=== PATIENT | female | born 1970 | race Caucasian/White ===

== ENCOUNTER 2018-07-02 09:12 | Day surgery (SDC) | payer BC ==
[~2018-07-02 09:12] MED LIST: Lactated Ringers 1,000 ML IV SCH; Sodium Chloride 0.9% 10 ML Syringe FLUSH PRN; Sodium Chloride 0.9% 2.5 ML Syringe FLUSH PRN
--- NOTE | 2018-07-02 09:52 | PCM.PREANE ---
Preanesthetic Assessment - Anesthesia/Transfusion/Family Hx Anesthesia History: Prior Anesthesia Without Reaction Family History of Anesthesia Reaction: No Transfusion History: No Prior Transfusion(s) Intubation History: Unknown - Review of Systems General: No Symptoms Pulmonary: No Symptoms Cardiovascular: No Symptoms Gastrointestinal: Difficulty Swallowing (resolved on prilosec) Neurological: No Symptoms Other: Reports: None - Physical Assessment O2 Sat by Pulse Oximetry: 98 Respiratory Rate: 16 Vital Signs: Last Vital Signs Temp 36.3 C 07/02/18 09:45 Pulse 89 07/02/18 09:45 Resp 16 07/02/18 09:45 BP 123/73 07/02/18 09:45 Pulse Ox 98 07/02/18 09:45 Height: 1.65 m Weight: 85.275 kg ASA Class: 2 Mental Status: Alert & Oriented x3 Airway Class: Mallampati = 2 Dentition: Reports: Normal Dentition Thyro-Mental Finger Breadths: 3 Mouth Opening Finger Breadths: 3 ROM/Head Extension: Full Lungs: Clear to Auscultation, Normal Respiratory Effort Cardiovascular: Regular Rate, Regular Rhythm - Allergies Allergies/Adverse Reactions: Allergies Allergy/AdvReac Type Severity Reaction Status Date / Time power Allergy Abdominal Verified 06/29/18 12:59 Pain corn Allergy Abdominal Verified 06/29/18 12:59 Pain egg yolk Allergy Abdominal Verified 06/29/18 12:59 Pain milk Allergy Abdominal Verified 06/29/18 12:59 Pain pollen extracts Allergy Sneezing Verified 06/29/18 12:59 watermelon Allergy Abdominal Verified 06/29/18 12:59 Pain wheat Allergy Abdominal Verified 06/29/18 12:59 Pain dust mites Allergy Sneezing Uncoded 06/29/18 12:59 sugar Allergy Abdominal Uncoded 06/29/18 12:59 Pain - Blood Blood Available: No - Anesthesia Plan Pre-Op Medication Ordered: None - Acknowledgements Anesthesia Type Planned: MAC Pt an Appropriate Candidate for the Planned Anesthesia: Yes Alternatives and Risks of Anesthesia Discussed w Pt/Guardian: Yes Pt/Guardian Understands and Agrees with Anesthesia Plan: Yes PreAnesthesia Questionnaire HEENT History: Reports: Other (See Below) Other HEENT History: wears glasses/contacts Respiratory History: Reports: Asthma Other Respiratory History: exercise induced- has not used inhaler for 15 years Gastrointestinal History: Reports: GERD Genitourinary History: Reports: None [employer] History: Reports: Neurological History: Reports: Concussion Endocrine/Metabolic History: Reports: Hypothyroidism, Obesity/BMI 30+ Dermatologic History: Reports: Other (See Below) Other Dermatologic History: has "sores- probably allergy related" - Past Surgical History Head Surgeries/Procedures: Reports: None GI Surgical History: Reports: Other (See Below) Other GI Surgeries/Procedures: Abdominoplasty Female Surgical History: Reports: Breast Implant, Section - SUBSTANCE USE Smoking Status *Q: Never Smoker Recreational Drug Use History: No - HOME MEDS Home Medications: Home Meds Cholecalciferol (Vitamin D3) [Vitamin D3] 5,000 unit PO DAILY 06/29/18 [History] Iron 65 mg PO DAILY 06/29/18 [History] Montelukast Sodium 10 mg PO DAILY 06/29/18 [History] Thyroid,Pork [Thayer Thyroid] 90 mg PO DAILY 06/29/18 [History] - CURRENT (IN HOUSE) MEDS Current Meds: Current Medications Lactated Ringer's (Ringers, Lactated) 1,000 mls @ 125 mls/hr IV ASDIRECTED LACI Last Admin: 07/02/18 09:48 Dose: 125 mls/hr Sodium Chloride (Saline Flush) 10 ml FLUSH ASDIRECTED PRN PRN Reason: Keep Vein Open Sodium Chloride (Saline Flush) 2.5 ml FLUSH ASDIRECTED PRN PRN Reason: Keep Vein Open Sodium Chloride (Saline Flush) 10 ml FLUSH ASDIRECTED PRN PRN Reason: Keep Vein Open Sodium Chloride (Saline Flush) 2.5 ml FLUSH ASDIRECTED PRN PRN Reason: Keep Vein Open
[2018-07-02] MEDS ORDERED: Midazolam 1 MG/ML 2 ML SDV ONE (12:26)
[2018-07-02] MEDS ORDERED: Lidocaine 2% 5 ML SDV ONE (12:27)
[2018-07-02] MEDS ORDERED: fentaNYL 100 MCG/2 ML SDV ONE (12:27)
[2018-07-02] MEDS ORDERED: Propofol 200 MG/20 ML SDV ONE (12:28)
--- NOTE | 2018-07-02 13:35 | PCM.OPNOTE ---
- General Post-Op/Procedure Note Date of Surgery/Procedure: 07/02/18 Operative Procedure(s): Diagnostic EGD and screening colonoscopy Findings: Normal appearing EGD and normal colonoscopy Pre Op Diagnosis: Dysphagia, family history of colon polyps/cancer Post-Op Diagnosis: Normal EGD and colonoscopy Anesthesia Technique: KALINA Primary Surgeon: Carline Way Condition: Good
--- NOTE | 2018-07-02 18:23 | OR ---
SURGEON: DEIDRE SERRANO MD DATE OF PROCEDURE: 07/02/2018 PREOPERATIVE DIAGNOSES: Dysphagia, family history of colon cancer and colon polyps. POSTOPERATIVE DIAGNOSES: Normal esophagogastroduodenoscopy and colonoscopy. PROCEDURES PERFORMED: Diagnostic EGD and screening colonoscopy. ANESTHESIA: MAC. INSTRUMENT USED: Olympus endoscope and colonoscope. EXTENT OF EXAM: To the second portion of duodenum, to the cecum. PREPARATION: Good. LIMITATIONS: None. INDICATION FOR EXAMINATION: The patient is a 48-year-old female who presents with dysphagia. She was recently seen by a GI physician and placed on a PPI. Her symptoms have improved, but it was recommended she have an EGD to rule out eosinophilic esophagitis. The patient also has a family history of colon cancer with her father having history of colon polyps. She is due for a screening colonoscopy. I explained the procedure, expected perioperative course, and risks including bleeding, infection, or damage to surrounding structures including perforation. The patient verbalized understanding and wishes to proceed. PROCEDURE IN DETAIL: The patient was brought to the endoscopy suite and placed in the left lateral decubitus position. A time-out was completed verifying the patient's name, age, date of , allergies, and procedure to be performed. Monitored anesthesia care was induced and continuous oxygen was provided via nasal cannula throughout the procedure. A bite block was placed in the patient's mouth. After adequate sedation was achieved, a well lubricated endoscope was placed in the patient's mouth and advanced under direct visualization to the second portion of duodenum. This appeared normal and a photograph was taken. The scope was then straightened out and fully withdrawn while examining the color, texture, anatomy, and integrity mucosa of the upper GI tract. The duodenum appeared normal. The scope was brought into the stomach and a photograph was taken of the GE junction as well as pylorus. Both appeared anatomically normal. The gastric mucosa was grossly unremarkable. Biopsies were taken of the gastric antrum, body, and fundus and sent for histologic review and H. pylori testing. The scope was then brought into the distal esophagus and a photograph was taken of the Z-line, which appeared normal. Biopsies were taken of the distal esophageal mucosa and sent for histologic review. The proximal esophagus was free of pathology. The scope was removed and this part of the procedure was terminated. I then turned my attention to the colonoscopic portion of the exam. A digital rectal exam was performed. This exam was within normal limits. A well lubricated colonoscope was inserted in the rectum and advanced under direct visualization to the level of the cecum. The cecum was identified by both visual and anatomic landmarks. A photograph was taken of the cecal cap as well as with the scope retroflexed within the cecum. The scope was then straightened out and fully withdrawn while examining the color, texture, anatomy, and integrity of the mucosa from the cecum to the anal canal. The findings were consistent with normal colonic mucosa. The scope was then brought into the rectum and retroflexed to allow visualization of the anal canal opening. This appeared normal and a photograph was taken. The scope was then straightened out and fully withdrawn. The cecum to anus time was 9 minutes. The patient tolerated procedure well and was taken to PACU in stable condition. ENDOSCOPIC DIAGNOSES: Normal-appearing esophagogastroduodenoscopy and colonoscopy. RECOMMENDATIONS: Follow up in clinic in 2 weeks to discuss the Pathology results from the EGD. COREEN WEINER /[id number]
== END 2018-07-02 14:20 | disposition home or self-care (01) ==
LOC: MW.SDS 09:12
PROVIDERS: ATTEND Surgery
DX: Z12.11 Encounter for screening for malignant neoplasm of colon (principal); K20.9 Esophagitis, unspecified; J45.990 Exercise induced bronchospasm; K21.9 Gastro-esophageal reflux disease without esophagitis; E03.9 Hypothyroidism, unspecified; E66.9 Obesity, unspecified; Z68.31 Body mass index [BMI] 31.0-31.9, adult; Z79.899 Other long term (current) drug therapy; Z79.890 Hormone replacement therapy; Z80.0 Family history of malignant neoplasm of digestive organs; Z83.71 Family history of colonic polyps; Z88.8 Allergy status to other drugs, medicaments and biological substances; Z91.018 Allergy to other foods
CPT/HCPCS: 43239; 45378; 81025; J2001; J2250; J2704; J3010; J7120; 88305; 88312

== ENCOUNTER 2019-06-24 11:44 | Day surgery (SDC) | payer BC ==
[~2019-06-24 11:44] MED LIST changes: +Betamethasone Acetate/Betamethasone Sod Phosphate 30 MG/5 ML MDV EPIDUR ONE; +Iopamidol 200-M 10 ML vial ITHECAL ONE; -Lactated Ringers 1,000 ML IV SCH; +Lidocaine 2% 5 ML SDV INJECT ONE; +Ropivacaine 0.5% 5 MG/ML 30 ML SDV INJECT ONE; -Sodium Chloride 0.9% 10 ML Syringe FLUSH PRN; -Sodium Chloride 0.9% 2.5 ML Syringe FLUSH PRN
--- NOTE | 2019-06-24 19:57 | OR ---
SURGEON: Amelia Yepez D.O. DATE OF PROCEDURE: 06/24/2019 PRIMARY SURGEON: Amelia Yepez D.O. TUB CHUCKER: OR staff present: 1. Kaylan Mayo RT. 2. Gerardo Pratt RN. 3. Terry Andrade RN. WOUND CLASS: I. PREOPERATIVE DIAGNOSES: 1. Lumbar degenerative disk disease, L4-L5, L5-S1. 2. Lumbar radiculopathy. 3. Chronic low back pain. 4. Lumbar spondylosis. POSTOPERATIVE DIAGNOSES: 1. Lumbar degenerative disk disease, L4-L5, L5-S1. 2. Lumbar radiculopathy. 3. Chronic low back pain. 4. Lumbar spondylosis. PROCEDURE PERFORMED: 1. Right L4 transforaminal epidural steroid injection. 2. Left L4 transforaminal epidural steroid injection. 3. Fluoroscopic guidance for needle placement. 4. Local with oral Valium for sedation. SCREENING QUESTIONS: The patient answered "no" to all of the following questions: 1. Are you allergic to iodine, Betadine or latex? 2. Do you have a bleeding disorder? 3. Do you have any joint replacements, heart valve replacements, or a pacemaker? 4. Are you allergic to anti-inflammatories or blood thinners? 5. Do you have any current local or systemic infections? DESCRIPTION OF PROCEDURE: The patient had the procedure thoroughly explained including risks, benefits and alternatives. Consent was signed in my clinic indicating understanding and willingness to proceed. The patient presented to [facility] where the patient was escorted to the dressing room to disrobe and change into a hospital gown. Preoperative vital signs were taken and stable. The patient reported that Valium was taken prior to the procedure. The patient was brought to the procedure room and placed in the prone position on the table. A pillow was placed under the abdomen in order to flatten the lumbar lordosis. The back was prepped with ChloraPrep and sterilely draped. All personnel in the operating room were dressed in appropriate attire including surgical scrubs, head and shoe covers. This was to ensure sterility while in the treatment room. During the time fluoroscopy was in use, all personnel in the operating room wore lead camacho with thyroid collars. Sterile technique was used during the procedure. The fluoroscope was placed for the left L4 transforaminal epidural steroid injection. There was no sign of infection at the skin site for needle insertion. The skin was anesthetized with 2% lidocaine with a 27 gauge 1-1/2 inch needle. Then a 22 gauge 3-1/2 inch spinal needle, advanced to the L4. Under direct fluoroscopic guidance needle position was verified in three views; AP, oblique and lateral, with 0.2 cubic centimeters increments of Isovue-200 dye. No intravascular flow pattern was observed under live fluoroscopy. Then a mixture of local and 6 milligrams of Celestone was slowly injected after negative aspiration of heme, cerebrospinal fluid and no paresthesias were noted. The needle was cleared prior to removal from the skin.No adverse reactions were noted. The procedure was repeated for the right L4 transforaminal epidural steroid injection as above without complications. The patient was brought to the recovery room awake and in good condition by my staff. The patient was monitored and discharge instructions were given after a brief stay in the recovery area. Both oral and written discharge and follow up instructions were given. The patient will follow up in the clinic in 3-4 weeks post procedure to evaluate the efficacy. The patient verbalized understanding including understanding of those signs and symptoms that would require emergency care and knows how to contact the office if there are any problems or questions in the meantime. PREOPERATIVE PAIN: 5/10. POSTOPERATIVE PAIN: 0/10. FOLLOWUP: Follow up in the Pain Clinic in 1 month. AMANDA / HUSAM /[id number] VIRAL
== END 2019-06-24 13:33 ==
LOC: MW.SDS 11:44
PROVIDERS: ATTEND Anesthesiology
DX: G89.29 Other chronic pain (principal); M51.16 Intervertebral disc disorders with radiculopathy, lumbar region; M47.26 Other spondylosis with radiculopathy, lumbar region; M51.17 Intervertebral disc disorders with radiculopathy, lumbosacral region; M48.061 Spinal stenosis, lumbar region without neurogenic claudication; M47.817 Spondylosis without myelopathy or radiculopathy, lumbosacral region; M79.18 Myalgia, other site; J45.909 Unspecified asthma, uncomplicated; Z91.018 Allergy to other foods; Z91.012 Allergy to eggs; Z91.011 Allergy to milk products
CPT/HCPCS: 64483; J0702

== ENCOUNTER 2019-07-22 11:17 | Day surgery (SDC) | payer BC ==
[2019-07-22] MEDS ORDERED: Iopamidol 200-M 10 ML vial ITHECAL ONE (13:00)
[2019-07-22] MEDS ORDERED: Betamethasone Acetate/Betamethasone Sod Phosphate 30 MG/5 ML MDV EPIDUR ONE (13:00)
[2019-07-22] MEDS ORDERED: Ropivacaine 0.5% 5 MG/ML 30 ML SDV INJECT ONE (13:00)
[2019-07-22] MEDS ORDERED: Lidocaine 2% 5 ML SDV INJECT ONE (13:00)
--- NOTE | 2019-07-22 21:45 | OR ---
SURGEON: Amelia Yepez D.O. DATE OF PROCEDURE: 07/22/2019 PRIMARY SURGEON: Amelia Yepez D.O. BOX OFFICE ATTENDANT: OR staff present: 1. Terry Andrade RN. 2. Gerardo Pratt RN. 3. RT Bharti. WOUND CLASS: I. PREOPERATIVE DIAGNOSES: 1. Lumbar degenerative disk disease, L4-L5 and L5-S1. 2. Lumbar spondylosis. 3. Right lower extremity radiculopathy. POSTOPERATIVE DIAGNOSES: 1. Lumbar degenerative disk disease, L4-L5 and L5-S1. 2. Lumbar spondylosis. 3. Right lower extremity radiculopathy. PROCEDURE PERFORMED: 1. Right transforaminal epidural steroid injection at L4. 2. Right transforaminal epidural steroid injection at L5. 3. Fluoroscopic guidance for needle placement. 4. Local with oral Valium for sedation. SCREENING QUESTIONS: The patient answered "no" to all of the following questions: 1. Are you allergic to iodine, Betadine or latex? 2. Do you have a bleeding disorder? 3. Do you have any joint replacements, heart valve replacements, or a pacemaker? 4. Are you allergic to anti-inflammatories or blood thinners? 5. Do you have any current local or systemic infections? MEDICAL NECESSITY: This is a patient with a history of chronic low back pain and lower extremity radicular pain in the above dermatomal pattern that comes in for the above diagnostic and therapeutic procedure. Pertinent positives and negatives for this suspected disease process along with the diagnostic findings and testing are in the patient's history and physical exam. The most salient feature includes radicular pain in the above dermatomal pattern. The patient had failed attempts at conservative therapy including physical therapy, nonsteroidal anti- inflammatory drugs, and other medications. No contraindications to perform this procedure including medical, no bleeding disorders or infections, no psychological, no antisocial personality disorder or active addiction disorder. There are no work-related issues, and, in general, the patient does not have any history of multiple prior interventions, surgeries or nerve blocks which have failed to return the patient to function. The patient's other symptoms to be treated include numbness, paresthesia, dysesthesia or hypoesthesia referred into the left lower extremity or any weakness in the involved myotome. This procedure is being performed in accordance with national guidelines as written by the International [employer] (BRITTANI). DESCRIPTION OF PROCEDURE: The patient had the procedure thoroughly explained including risks, benefits and alternatives. Consent was signed in my clinic indicating understanding and willingness to proceed. The patient presented to [facility] [place] where the patient was escorted to the dressing room to disrobe and change into a hospital gown. Preoperative vital signs were taken and stable. The patient reported that Valium was taken prior to the procedure. The patient was brought to the procedure room and placed in the prone position on the table. A pillow was placed under the abdomen in order to flatten the lumbar lordosis. The back was prepped with ChloraPrep and sterilely draped. All personnel in the operating room were dressed in appropriate attire including surgical scrubs, head and shoe covers. This was to ensure sterility while in the treatment room. During the time fluoroscopy was in use, all personnel in the operating room wore lead camacho with thyroid collars. Sterile technique was used during the procedure. The fluoroscope was placed for the L4 and L5 transforaminal epidural steroid injection. There was no sign of infection at the skin site for needle insertion. The skin was anesthetized with 2% lidocaine with a 27 gauge 1-1/2 inch needle. Then a 22 gauge 3-1/2 inch spinal needle, advanced to the L4 and L5. Under direct fluoroscopic guidance needle position was verified in three views; AP, oblique and lateral, with 0.2 cubic centimeters increments of Isovue- 200 dye. No intravascular flow pattern was observed under live fluoroscopy. Then 12 milligrams of Celestone was slowly injected after negative aspiration of heme, cerebrospinal fluid and no paresthesias were noted. The needle was cleared prior to removal from the skin. No adverse reactions were noted. The patient was brought to the recovery room awake and in good condition by my staff. The patient was monitored and discharge instructions were given after a brief stay in the recovery area. Both oral and written discharge and follow up instructions were given. The patient will follow up in the clinic in 3-4 weeks post procedure to evaluate the efficacy. The patient verbalized understanding including understanding of those signs and symptoms that would require emergency care and knows how to contact the office if there are any problems or questions in the meantime. PREOPERATIVE PAIN: 8/10. POSTOPERATIVE PAIN: 10. FOLLOWUP: Follow up in the Pain Clinic in 1 month. HOGLCHR / MODL /[id number]
== END 2019-07-22 14:08 ==
LOC: MW.SDS 11:17
PROVIDERS: ATTEND Anesthesiology
DX: G89.29 Other chronic pain (principal); M51.16 Intervertebral disc disorders with radiculopathy, lumbar region; M51.17 Intervertebral disc disorders with radiculopathy, lumbosacral region; M47.26 Other spondylosis with radiculopathy, lumbar region; M47.27 Other spondylosis with radiculopathy, lumbosacral region; M48.061 Spinal stenosis, lumbar region without neurogenic claudication; E03.9 Hypothyroidism, unspecified; M79.18 Myalgia, other site; Z91.012 Allergy to eggs; Z91.018 Allergy to other foods; Z91.011 Allergy to milk products; Z91.048 Other nonmedicinal substance allergy status; Z79.899 Other long term (current) drug therapy
CPT/HCPCS: 62323; 64483; 64484; 81025

== ENCOUNTER 2019-12-30 10:49 | Day surgery (SDC) | payer BC ==
[2019-12-30] MEDS ORDERED: Iopamidol 200-M 10 ML vial ITHECAL ONE (12:00)
[2019-12-30] MEDS ORDERED: Lidocaine 2% 5 ML SDV INJECT ONE (12:00)
[2019-12-30] MEDS ORDERED: Betamethasone Acetate/Betamethasone Sod Phosphate 30 MG/5 ML MDV EPIDUR ONE (12:00)
[2019-12-30] MEDS ORDERED: Ropivacaine 0.5% 5 MG/ML 30 ML SDV INJECT ONE (12:00)
--- NOTE | 2019-12-30 18:02 | OR ---
SURGEON: Amelia Yepez D.O. DATE OF PROCEDURE: 12/30/2019 PRIMARY SURGEON: Amelia Yepez D.O. ASSISTANTS: OR Staff Present: 1. Denisse Bruner RN. 2. Terry Shane RN. 3. Terry Andrade RN. 4. Robin Holley, RT. WOUND CLASS: I. PREOPERATIVE DIAGNOSES: 1. Lumbar facet arthropathy-right L3-4 L4-5 and L5-S1. 2. Chronic low back pain. 3. Lumbar scoliosis. 4. Lumbar degenerative disk disease; L3-4, L4-5 and L5-S1. POSTOPERATIVE DIAGNOSES: 1. Lumbar facet arthropathy-right L3-4 L4-5 and L5-S1. 2. Chronic low back pain. 3. Lumbar scoliosis. 4. Lumbar degenerative disk disease; L3-4, L4-5 and L5-S1. PROCEDURES PERFORMED: 1. Right L3-4 facet joint injection. 2. Right L4-5 facet joint injection. 3. Right L5-S1 facet joint injection. 4. Fluoroscopic guidance for needle placement. 5. Local with oral Valium for sedation. SCREENING QUESTIONS: The patient answered "No" to all the following questions: 1. Are you allergic to iodine, Betadine or latex? 2. Do you have a bleeding disorder? 3. Are you on anti-inflammatories or blood thinners? 4. Do you have any current local or systemic infections? DESCRIPTION OF PROCEDURE: The patient had the procedure thoroughly explained including risks, benefits and alternatives. Consent was signed in my clinic indicating understanding and willingness to proceed. The patient presented to [facility] [place] and was escorted to the dressing room to disrobe and change into a hospital gown. Preoperative history and screening were performed by my nurse. Vital signs were taken and stable. The patient reported that Valium 10 milligrams was taken prior to the procedure. The patient was brought back to the procedure room and placed in the prone position on the procedure room table. A pillow was placed under the abdomen in order to flatten the lumbar lordosis. The back was prepped with ChloraPrep and sterilely draped. All personnel in the procedure room were dressed in appropriate attire including surgical scrubs, head and shoe covers. This was to ensure sterility while in the treatment room. During the time fluoroscopy was in use all personnel in the operating room wore lead camacho with thyroid collars. Sterile technique was used during the procedure. The fluoroscope was positioned to provide a right oblique view. Then the right L3-4 facet joint injection was begun by anesthetizing the skin and soft tissues with 2 cubic centimeters of 2% Preservative-Free Lidocaine with a 25-gauge 1.5 inch needle. There were no signs of infection at the site of needle skin insertions. Using fluoroscopic guidance a sterile 22-gauge 3.5 inch spinal needle was positioned at the junction of the "ear of the [place] dog". Precise needle placement was confirmed by fluoroscopy and 0.2 cubic centimeters increments of IsoVue-200 contrast dye which was injected through microbore tubing under live fluoroscopy and showed no intravascular flow pattern and adequate flow over the target L3-4 facet joint. Then 1.0 cubic centimeters of Celestone with local 0.5% Ropivacaine Preservative-Free was injected slowly without complications after negative aspiration. Then the fluoroscope was positioned to provide a right oblique view for the right L4-5 facet joint injection. This was begun by anesthetizing the skin and soft tissues. The fluoroscope was positioned and a sterile 22-gauge 3.5 inch needle was placed at the junction of the " ear of the [place] dog" . Precise needle placement was confirmed by fluoroscopy and with 0.2 cubic centimeter increments of IsoVue-200 contrast dye injected through microbore tubing under live fluoroscopy that showed no intravascular flow pattern and adequate flow over the target . After negative aspiration, 1.0 cubic centimeters of Celestone and local was injected without complications. The fluoroscope was then positioned to provide a right L5-S1 facet injection. This was begun by anesthetizing the skin and soft tissues over the right sacral sulcus. Then using fluoroscopic guidance, a sterile 22-gauge 3.5 inch spinal needle was positioned at the "ear of the [place] dog". Precise needle placement was confirmed by fluoroscopy in AP and oblique views, and with 0.2 cubic centimeter increments of IsoVue-200 contrast dye injected through microbore tubing under live fluoroscopy and showed no intravascular flow pattern and adequate flow over the target facet joint. After negative aspiration, 1.0 cubic centimeters of Celestone and local 0.5% Ropivacaine was injected. No complications were noted. The procedure was well tolerated and vital signs were stable during and after the procedure. The staff escorted the patient to the recovery area. The patient was given both oral and written discharge and followup instructions. The patient will follow up with a pain diary which will be evaluated over this evening doing things that would normally cause pain. We will evaluate the efficacy of the diagnostic lumbar medial branch blocks as the patient will follow up in the clinic the next day. The patient was given both oral and written discharge and followup instructions. The patient voiced understanding including understanding of those signs and symptoms that would require emergency care and knows how to contact the office if there are any questions or concerns in the meantime. PREOPERATIVE PAIN: 12/02 POSTOPERATIVE PAIN: 07/05 FOLLOWUP: In the Pain Clinic in one month. HOGLCHR / JUSTUSL /[id number] VIRAL
== END 2019-12-30 13:00 ==
LOC: MW.SDS 10:49
PROVIDERS: ATTEND Anesthesiology
DX: G89.29 Other chronic pain (principal); M51.16 Intervertebral disc disorders with radiculopathy, lumbar region; M79.18 Myalgia, other site; M48.061 Spinal stenosis, lumbar region without neurogenic claudication; M47.26 Other spondylosis with radiculopathy, lumbar region; E03.9 Hypothyroidism, unspecified; M41.9 Scoliosis, unspecified; Z79.899 Other long term (current) drug therapy
CPT/HCPCS: 64493; 64494; 64495; J0702; J2001; J2795; Q9966

== ENCOUNTER 2020-08-29 12:00 | Day surgery (SDC) | payer BC ==
[2020-08-29] MEDS ORDERED: Lidocaine 2% 5 ML SDV INJECT ONE (13:00)
[2020-08-29] MEDS ORDERED: Iopamidol 200-M 10 ML vial ITHECAL ONE (13:00)
[2020-08-29] MEDS ORDERED: Betamethasone Acetate/Betamethasone Sod Phosphate 30 MG/5 ML MDV EPIDUR ONE (13:00)
[2020-08-29] MEDS ORDERED: Ropivacaine 0.5% 5 MG/ML 30 ML SDV INJECT ONE (13:00)
--- NOTE | 2020-08-29 22:14 | OR ---
SURGEON: Amelia Yepez D.O. DATE OF PROCEDURE: 08/29/2020 PRIMARY SURGEON: Amelia Yepez D.O. BUILDING CONSTRUCTION INSPECTOR: OR staff present: 1. Brian Andrade RN. 2. Brian Burch RN. 3. Aaron Kirkpatrick RT. WOUND CLASS: I. PREOPERATIVE DIAGNOSES: 1. L4-5, L5-S1 degenerative disk disease. 2. Right L4, L5, S1 radiculopathy. 3. Chronic low back pain. 4. Lumbar spondylosis. POSTOPERATIVE DIAGNOSES: 1. L4-5, L5-S1 degenerative disk disease. 2. Right L4, L5, S1 radiculopathy. 3. Chronic low back pain. 4. Lumbar spondylosis. PROCEDURE PERFORMED: 1. Right L4 transforaminal epidural steroid injection. 2. Right S1 transforaminal epidural steroid injection. 3. Fluoroscopic guidance for needle placement. 4. Local with oral Valium for sedation. SCREENING QUESTIONS: The patient answered "no" to all of the following questions: 1. Are you allergic to iodine, Betadine or latex? 2. Do you have a bleeding disorder? 3. Do you have any joint replacements, heart valve replacements, or a pacemaker? 4. Are you allergic to anti-inflammatories or blood thinners? 5. Do you have any current local or systemic infections? DESCRIPTION OF PROCEDURE: The patient had the procedure thoroughly explained including risks, benefits and alternatives. Consent was signed in my clinic indicating understanding and willingness to proceed. The patient presented to [facility] where the patient was escorted to the dressing room to disrobe and change into a hospital gown. Preoperative vital signs were taken and stable. The patient reported that Valium was taken prior to the procedure. The patient was brought to the procedure room and placed in the prone position on the table. A pillow was placed under the abdomen in order to flatten the lumbar lordosis. The back was prepped with ChloraPrep and sterilely draped. All personnel in the operating room were dressed in appropriate attire including surgical scrubs, head and shoe covers. This was to ensure sterility while in the treatment room. During the time fluoroscopy was in use, all personnel in the operating room wore lead camacho with thyroid collars. Sterile technique was used during the procedure. The fluoroscope was placed for the right L4 transforaminal epidural steroid injection. There was no sign of infection at the skin site for needle insertion. The skin was anesthetized with 2% lidocaine with a 27 gauge 1-1/2 inch needle. Then a 22 gauge 3-1/2 inch spinal needle, advanced to the right L4 foramen. Under direct fluoroscopic guidance needle position was verified in three views; AP, oblique and lateral, with 0.2 cubic centimeters increments of Isovue-200 dye. No intravascular flow pattern was observed under live fluoroscopy.Then 6 milligrams of Celestone and local was slowly injected after negative aspiration of heme, cerebrospinal fluid and no paresthesias were noted. The needle was cleared prior to removal from the skin. The procedure was repeated for the right S1 transforaminal epidural steroid injection as above. No adverse reactions were noted. The patient was brought to the recovery room awake and in good condition by my staff. The patient was monitored and discharge instructions were given after a brief stay in the recovery area. Both oral and written discharge and follow up instructions were given. The patient will follow up in the clinic in 3-4 weeks post procedure to evaluate the efficacy. The patient verbalized understanding including understanding of those signs and symptoms that would require emergency care and knows how to contact the office if there are any problems or questions in the meantime. PREOPERATIVE PAIN: 6 to 8 out of 10. POSTOPERATIVE PAIN: 3/10. PLAN: Followup in the pain clinic in 3 weeks. AMANDA / HUSAM /[id number] VIRAL
== END 2020-08-29 13:53 ==
LOC: MW.SDS 12:00
PROVIDERS: ATTEND Anesthesiology
DX: G89.29 Other chronic pain (principal); M51.16 Intervertebral disc disorders with radiculopathy, lumbar region; M51.17 Intervertebral disc disorders with radiculopathy, lumbosacral region; M48.061 Spinal stenosis, lumbar region without neurogenic claudication; M47.26 Other spondylosis with radiculopathy, lumbar region; E03.9 Hypothyroidism, unspecified; Z91.018 Allergy to other foods; Z91.011 Allergy to milk products; Z91.012 Allergy to eggs; Z79.899 Other long term (current) drug therapy; Z98.890 Other specified postprocedural states
CPT/HCPCS: 64483; 64484; J0702; J2795; Q9966